=== PATIENT | female | born 1990 | race African-American/Black ===

== ENCOUNTER → 2020-01-18 | Outpatient (CLI) | payer OTHER | LOC: LAB 09:31 | DX: Z20.828 Contact with and (suspected) exposure to other viral communicable diseases (principal) ==

== ENCOUNTER 2021-01-28 11:44 | Emergency (ER) | payer MEDICAID ==
[2021-01-28] MEDS ORDERED: NORCO 325 MG-51 TA1 PO (12:33)
[2021-01-28] MEDS ORDERED: BACTRIM DS TAB1 EACH PO (12:33)
[2021-01-28] MEDS ORDERED: SILVADENE11 TP (12:33)
[2021-01-28 12:48] VITALS: BP 112/72
== END 2021-01-28 12:54 | disposition home or self-care (01) ==
LOC: ED 11:44
DX: T21.25XA Burn of second degree of buttock, initial encounter (principal); T24.222A Burn of second degree of left knee, initial encounter; W39.XXXA Discharge of firework, initial encounter
CPT/HCPCS: 90715

== ENCOUNTER → 2021-03-20 | Outpatient (CLI) | payer MEDICAID ==
[~2021-03-20] MED LIST: BACTRIM DS TAB1 EACH PO; NORCO 325 MG-51 TA1 PO; SILVADENE11 TP
== END ==
LOC: LAB 15:47
DX: N91.2 Amenorrhea, unspecified (principal)

== ENCOUNTER → 2021-10-29 | Outpatient (CLI) | payer MEDICAID ==
[~2021-10-29] MED LIST changes: +ALCOHOL PREP P1 EACH TP; +ANUCORT HC25 MG REC; +ANUSOL-HC2.5% RC; +FERROUS SULFAT325 M4 PO; +IBUPROFEN600 M1 PO; +LABETALOL HYDR200 MG PO; +ONETOUCH ULTRA1 EAC2 MC; +ONETOUCH ULTRA1 EACH MC; +ZOFRAN ODT4 MG PO; +[UNRECOGNIZED DRUG - OTHER] MC
[2021-10-30 16:48] LABS: T3 FREE 4.1 pg/mL (1.7-3.7)
== END ==
LOC: LAB 16:59
PROVIDERS: Family Medicine
DX: I10 Essential (primary) hypertension (principal); E04.2 Nontoxic multinodular goiter

== ENCOUNTER → 2021-11-02 | Outpatient (CLI) | payer MEDICAID | LOC: RAD 12:51 | DX: E04.2 Nontoxic multinodular goiter (principal); E06.0 Acute thyroiditis ==

== ENCOUNTER 2021-11-03 18:53 | Emergency (ER) | payer MEDICAID ==
[~2021-11-03] VITALS: Ht 167.6 cm; Wt 93.2 kg
[~2021-11-03 18:53] MED LIST changes: -ALCOHOL PREP P1 EACH TP; -ANUCORT HC25 MG REC; -ANUSOL-HC2.5% RC; -FERROUS SULFAT325 M4 PO; -IBUPROFEN600 M1 PO; -LABETALOL HYDR200 MG PO; -ONETOUCH ULTRA1 EAC2 MC; -ONETOUCH ULTRA1 EACH MC; -ZOFRAN ODT4 MG PO; -[UNRECOGNIZED DRUG - OTHER] MC
[2021-11-03] MEDS ORDERED: IBUPROFEN600 M1 PO (20:44)
[2021-11-03] MEDS ORDERED: FERROUS SULFAT325 M4 PO (20:44)
[2021-11-03] MEDS ORDERED: LABETALOL HYDR200 MG PO (20:44)
[2021-11-03] MEDS ORDERED: ONETOUCH ULTRA1 EACH MC (20:45)
[2021-11-03] MEDS ORDERED: ALCOHOL PREP P1 EACH TP (20:46)
[2021-11-03] MEDS ORDERED: [UNRECOGNIZED DRUG - OTHER] MC (20:46)
[2021-11-03] MEDS ORDERED: ONETOUCH ULTRA1 EAC2 MC (20:46)
[2021-11-03] MEDS ORDERED: ZOFRAN ODT4 MG PO (20:46)
[2021-11-03] MEDS ORDERED: ANUCORT HC25 MG REC (21:39)
[2021-11-03] MEDS ORDERED: ANUSOL-HC2.5% RC (21:39)
[2021-11-03 22:00] VITALS: BP 124/78
== END 2021-11-03 22:00 | disposition home or self-care (01) ==
LOC: ED 18:53
DX: O87.2 Hemorrhoids in the puerperium (principal); K59.00 Constipation, unspecified; K60.2 Anal fissure, unspecified

== ENCOUNTER → 2022-01-29 | Outpatient (CLI) | payer MEDICAID ==
[~2022-01-29] MED LIST changes: +ALCOHOL PREP P1 EACH TP; +ANUCORT HC25 MG REC; +ANUSOL-HC2.5% RC; +FERROUS SULFAT325 M4 PO; +IBUPROFEN600 M1 PO; +LABETALOL HYDR200 MG PO; +ONETOUCH ULTRA1 EAC2 MC; +ONETOUCH ULTRA1 EACH MC; +ZOFRAN ODT4 MG PO; +[UNRECOGNIZED DRUG - OTHER] MC
== END ==
LOC: LAB 12:08
DX: E04.9 Nontoxic goiter, unspecified (principal)

== ENCOUNTER → 2022-04-15 | Outpatient (CLI) | payer MEDICAID | LOC: LAB 13:38 | DX: E03.9 Hypothyroidism, unspecified (principal) ==

== ENCOUNTER → 2022-11-12 | Outpatient (CLI) | payer MEDICAID ==
[2022-11-12 09:47] LABS: BASO # 0.03 K/mm3 (0.02-0.10); EOS % 2.8 % (1.0-5.0); HEMATOCRIT 40.3 % (37.0-47.0); HEMOGLOBIN 12.5 g/dL (12.5-16.0); LYMPH# 1.67 K/mm3 (1.50-4.00); MEAN CELL VOLUME 82 fl (78-100); MEAN CORPUSCULAR HEMOGLOBIN 25 pg (27-31); MEAN CORPUSCULAR HGB CONC 31 g/dL (33-37); MEAN PLATELET VOLUME 10.4 fl (7.4-10.4); MONO # 0.32 K/mm3 (0.20-0.80); NEU # 1.43 K/mm3 (1.40-6.50); PLATELET COUNT 268 K/mm3 (130-400); RED BLOOD COUNT 4.92 M/mm3 (4.10-5.30); RED CELL DISTRIBUTION WIDTH 14.8 % (11.5-14.5); WHITE BLOOD COUNT 3.6 K/mm3 (4.8-10.8)
[2022-11-12 09:50] LABS: POTASSIUM 4.2 mmol/L (3.5-5.1)
[2022-11-12 09:51] LABS: ALBUMIN 4.3 g/dL (3.5-5.0)
[2022-11-12 09:52] LABS: CALCIUM 9.5 mg/dL (8.3-10.5)
[2022-11-12 09:53] LABS: TOTAL PROTEIN 7.6 g/dL (6.4-8.3)
[2022-11-12 09:55] LABS: TOTAL BILIRUBIN 0.3 mg/dL (0.2-1.2)
[2022-11-13 01:00] LABS: T3 TOTAL 117 ng/dL (35-193)
== END ==
LOC: LAB 09:10
PROVIDERS: Physician Assistant
DX: Z13.220 Encounter for screening for lipoid disorders (principal); Z13.1 Encounter for screening for diabetes mellitus; Z01.419 Encounter for gynecological examination (general) (routine) without abnormal findings; D50.9 Iron deficiency anemia, unspecified; E04.2 Nontoxic multinodular goiter; E03.9 Hypothyroidism, unspecified; K90.9 Intestinal malabsorption, unspecified; N89.8 Other specified noninflammatory disorders of vagina

== ENCOUNTER → 2023-11-18 | Outpatient (CLI) | payer MEDICAID ==
[~2023-11-18] MED LIST changes: +CETIRIZINE HCL10 MG PO; +LEVOTHYROXINE125 MCG PO; +PHENTERMINE H37.5 M2 PO
[2023-11-18 10:02] LABS: BASO # 0.01 K/mm3 (0.02-0.10); EOS # 0.03 K/mm3 (0.04-0.40); EOS % 0.8 % (1.0-5.0); HEMATOCRIT 37.3 % (37.0-47.0); HEMOGLOBIN 11.8 g/dL (12.5-16.0); LYMPH# 1.78 K/mm3 (1.50-4.00); MEAN CELL VOLUME 86 fl (78-100); MEAN CORPUSCULAR HEMOGLOBIN 27 pg (27-31); MEAN CORPUSCULAR HGB CONC 32 g/dL (33-37); MEAN PLATELET VOLUME 10.9 fl (7.4-10.4); MONO # 0.25 K/mm3 (0.20-0.80); NEU # 1.86 K/mm3 (1.40-6.50); PLATELET COUNT 239 K/mm3 (130-400); RED BLOOD COUNT 4.34 M/mm3 (4.10-5.30); RED CELL DISTRIBUTION WIDTH 13.6 % (11.5-14.5); WHITE BLOOD COUNT 3.9 K/mm3 (4.8-10.8)
[2023-11-18 10:16] LABS: ALBUMIN 4.2 g/dL (3.5-5.0)
[2023-11-18 10:17] LABS: CALCIUM 9.1 mg/dL (8.3-10.5)
[2023-11-18 10:18] LABS: TOTAL PROTEIN 7.2 g/dL (6.4-8.3)
[2023-11-18 10:20] LABS: TOTAL BILIRUBIN 0.4 mg/dL (0.2-1.2)
[2023-11-18 10:24] LABS: DIRECT BILIRUBIN 0.2 mg/dL (0.0-0.5)
== END ==
LOC: LAB 09:37
DX: Z51.81 Encounter for therapeutic drug level monitoring (principal); Z79.899 Other long term (current) drug therapy